=== PATIENT | female | born 1995 ===

== ENCOUNTER 2018-07-30 22:55 | Emergency (ER) | payer MEDICAID ==
[2018-07-30 22:55] VITALS: BMI 28.5
[2018-07-30 23:56] VITALS: PULSE 81
--- NOTE | 2018-07-31 02:37 | ED PDOC ---
HPI: General Adult Time Seen by Provider: 07/31/18 01:00 Chief Complaint (Nursing): Dizziness/Lightheaded Chief Complaint (Provider): Dizziness/Lightheaded History Per: Patient History/Exam Limitations: no limitations Onset/Duration Of Symptoms: Days (x1 week) Current Symptoms Are (Timing): Still Present Additional Complaint(s): 23 year old female with a history of ventricular septum deviation, tricuspid stenosis, COPD on oxygen at home and chronic cough presents to the ED for dizziness, headache, chest pain, leg swelling and cough onset one week. Patient has had 3 blood clots this year, one in her leg in December, one in her lung in January, and one in her leg again in May. Patient goes to [facility] and has been admitted there multiple times for blood clots and potential heart transplant. 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 Dr. De Oliveira on Thursday who advised her to go to [facility], but she was unable to due to lack of transportation. She has diarrhea but denies vomiting, abdominal pain or any other medical complaints. PMD: none Pulverizer Feeder: Dr. De Oliveira Past Medical History Reviewed: Historical Data, Nursing Documentation, Vital Signs Vital Signs: Last Vital Signs Temp 97.5 F L 07/31/18 06:28 Pulse 81 07/31/18 06:28 Resp 18 07/31/18 06:28 BP 118/78 07/31/18 06:28 Pulse Ox 95 07/31/18 06:28 - Medical History PMH: COPD, Pneumonia Other PMH: ventricular septum deviation, tricuspid stenosis - Surgical History Other surgeries: tracheostomy in the past - Family History Family History: States: Unknown Family Hx - Immunization History Hx Tetanus Toxoid Vaccination: No Hx Influenza Vaccination: No Hx Pneumococcal Vaccination: No - Home Medications Home Medications: Ambulatory Orders Medication Instructions Recorded Ofloxacin Ophth 0.3% [Ocuflox 5 ml OD Q4 #1 bottle 02/28/16 Ophth 0.3%] - Allergies Allergies/Adverse Reactions: Allergies Allergy/AdvReac Type Severity Reaction Status Date / Time peanut Allergy ANGIOEDEMA Verified 07/30/18 23:53 Review of Systems ROS Statement: Except As Marked, All Systems Reviewed And Found Negative Cardiovascular: Positive for: Chest Pain Respiratory: Positive for: Cough Gastrointestinal: Positive for: Diarrhea. Negative for: Vomiting, Abdominal Pain Neurological: Positive for: Headache (and lightheadedness) Physical Exam - Reviewed Nursing Documentation Reviewed: Yes Vital Signs Reviewed: Yes - Physical Exam Appears: Positive for: No Acute Distress (comfortable) Head Exam: Positive for: ATRAUMATIC, NORMOCEPHALIC Skin: Positive for: Normal Color, Warm, Dry Eye Exam: Positive for: Normal appearance, EOMI, PERRL Neck: Positive for: Normal Cardiovascular/Chest: Positive for: Regular Rate, Rhythm. Negative for: Murmur Respiratory: Positive for: Normal Breath Sounds. Negative for: Respiratory Distress Gastrointestinal/Abdominal: Positive for: Soft. Negative for: Tenderness Extremity: Positive for: Normal ROM, Swelling (LLE swollen in comparison with RLE) Neurologic/Psych: Positive for: Alert, Oriented (x3) - Laboratory Results Result Diagrams: 07/31/18 02:30 07/31/18 02:30 - ECG O2 Sat by Pulse Oximetry: 85 (RA) Pulse Ox Interpretation: Normal Medical Decision Making Medical Decision Making: Time: 013 Initial Impression: Headache and dizziness, chest pain and leg swelling Differential diagnoses include but are not limited to: PE, DVT, post-tussive headache, other possible diagnoses consider but not listed. Initial Plan: --CT angio --CT head --EKG --B-type natriuretic peptide --BMP --Troponin --U preg --U dip --CBC with differentials --PTT --Prothrombin time --Duplex lower left extrem Time: 234 Duplex lower left extrem: FINDINGS: Deep veins: Normal color and spectral Doppler flow. Normal compressibility. No deep vein thrombosis. Superficial veins: No thrombosis. Soft tissues: No popliteal cyst. IMPRESSION: No evidence of DVT within left lower extremity. Time: 034 CT head FINDINGS: Brain: No intracranial hemorrhage. No mass. No definite edema. Ventricles: No hydrocephalus. Bones/joints: No acute fracture. Soft tissues: Unremarkable. Sinuses: Opacification of RIGHT frontal sinus. Minimal mucosal thickening of ethmoid sinuses. Mastoid air cells: No significant effusion. Orbits: Unremarkable as visualized. IMPRESSION: 1. No definite acute intracranial abnormality. 2. Sinus disease. Time: 045 CT Angio FINDINGS: PULMONARY ARTERIES: Superior vena cava appears to connect with the right pulmonary artery, suggestive of systemic-pulmonary shunt, possibly a Emile shunt. The pulmonary arteries are small in size, and demonstrate diffusely heterogeneous enhancement bilaterally. This finding could be due to to mixing of unenhanced and enhanced blood, however, it is difficult to rule out bilateral pulmonary emboli. AORTA: Exam is nondiagnostic for the detection of aortic dissection because of suboptimal enhancement of the aorta. LUNGS: Incidental 3 mm noncalcified pulmonary nodule in the left lung, image 35/ series 5. In lowrisk patients (minimal or absent history of smoking or other known risk factors), no follow-up is necessary. For high-risk patients (history of smoking or other known risk factors), an optional chest CT at 12 months could be performed. No evidence of significant focal consolidation/infiltrate in the lungs. No evidence of diffuse pulmonary vascular congestion. PLEURAL SPACE: No pneumothorax or pleural effusions seen. 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 The right heart chambers are very small in size, which could be secondary to hypoplastic right heart syndrome. Left heart chambers appear grossly normal in size. No evidence of significant pericardial effusion. MEDIASTINUM: Esophagus is filled with fluid and air, and is mildly, diffusely dilated. Surgical material is seen throughout the mediastinum. BONES/JOINTS: Scoliotic curvature of the spine, secondary to a vertebral anomaly , specifically a hemivertebra, at the T3 level. 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 SOFT TISSUES: No acute abnormality of the visualized soft tissues seen. LYMPH NODES: No evidence of diffuse lymphadenopathy. LIVER: Metallic densities in the liver, uncertain etiology, but could represent embolization coils. IMPRESSION: - Nondiagnostic exam for pulmonary emboli. There is abnormal heterogeneous enhancement of the pulmonary arteries bilaterally. This is suspected to be due to mixing of unenhanced and enhanced blood, in this patient with evidence of a systemic-pulmonary shunt, possibly a Emile shunt. However, bilateral pulmonary emboli are difficult to exclude. 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 - Incidental 3 mm pumonary nodule. See recommendations above. - See above for remaining findings. Scribe Attestation: Documented by Yamini Santana, acting as a scribe for Jayce Drew MD Provider Scribe Attestation: All medical record entries made by the Scribe were at my direction and personally dictated by me. I have reviewed the chart and agree that the record accurately reflects my personal performance of the history, physical exam, medical decision making, and the department course for this patient. I have also personally directed, reviewed, and agree with the discharge instructions and disposition. Disposition - Clinical Impression Clinical Impression: Dizziness, Headache, Chest pain, Leg swelling, Hypokalemia, Pulmonary nodule - Patient ED Disposition Is Patient to be Admitted: No Doctor Will See Patient In The: Office Counseled Patient/Family Regarding: Studies Performed, Diagnosis, Need For Followup - Disposition Disposition: Routine/Home Disposition Time: 06:00 Condition: GOOD Additional Instructions: BRAYDON IBARRA, thank you for letting us take care of you today. Your provider was Jayce Drew MD and you were treated for DIZZINESS,HEADACHE. The emergency medical care you received today was directed at your acute symptoms. If you were prescribed any medication, please fill it and take as directed. It may take several days for your symptoms to resolve. Return to the Emergency Department if your symptoms worsen, do not improve, or if you have any other problems. Please contact your doctor or call one of the physicians/clinics you have been referred to that are listed on the Patient Visit Information form that is included in your discharge packet. Bring any paperwork you were given at discharge with you along with any medications you are taking to your follow up visit. Our treatment cannot replace ongoing medical care by a primary care provider outside of the emergency department. Thank you for allowing the [facility] team to be part of your care today. If you had an X-Ray or CT scan: A Radiologist will review the ED reading if any change in treatment is needed we will contact you. If you had a blood, urine, or wound culture: It will take several days for the results, if any change in treatment is needed we will contact you. If you had an STI test: It will take 48 hours for the results. Please call after 1 week if you have not heard back. Instructions: Chest Pain, Hypokalemia (DC), Headache, Adult (DC), Pulmonary Nodule
[2018-07-31 02:59] LABS: BASO # 0.1 K/uL (0.0-0.2); BASO % 0.9 % (0.0-2.0); EOS # 0.1 K/uL (0.0-0.7); EOS % 1.4 % (0.0-4.0); HEMOGLOBIN 12.6 g/dL (12.0-16.0); INR 2.5; LYMPH # 2.3 K/uL (1.0-4.3); MEAN CELL VOLUME 73.1 fl (81.0-99.0); MEAN CORPUSCULAR HEMOGLOBIN 23.8 pg (27.0-31.0); MEAN CORPUSCULAR HGB CONC 32.5 g/dL (33.0-37.0); MEAN PLATELET VOLUME 8.2 fl (7.2-11.7); MONO # 0.7 K/uL (0.0-0.8); MONO % 10.5 % (0.0-10.0); NEUT # 3.5 K/uL (1.8-7.0); NEUT % 53.2 % (50.0-75.0); NRBC % 0.1 % (0.0-0.0); PROTHROMBIN TIME 27.8 Seconds (9.8-13.1); RBC 5.3 Mil/uL (3.80-5.20); RED CELL DISTRIBUTION WIDTH 18.1 % (11.5-14.5); WHITE BLOOD COUNT 6.7 K/uL (4.8-10.8)
[2018-07-31 03:02] LABS: PARTIAL THROMBOPLASTIN TIME 50.2 Seconds (25.6-37.1)
[2018-07-31 03:03] LABS: BLOOD UREA NITROGEN 15 mg/dl (7-17); CALCIUM 9.4 mg/dL (8.4-10.2); GFR NON-AFRICAN AMERICAN > 60
[2018-07-31] MEDS ORDERED: Sodium Chloride 0.9% 50 ML IV ONE (03:10)
[2018-07-31] MEDS ORDERED: Iodixanol 320 MG/ML 100 ML BOTTLE IV ONE (03:10)
[2018-07-31 03:15] LABS: B-TYPE NATRIURETIC PEPTIDE 109 pg/ml (0-450)
[2018-07-31] MEDS ORDERED: Potassium Chloride 20 mEq ER Tab PO ONE (03:27)
[2018-07-31] MEDS ORDERED: Potassium CL 10 MEQ/50 ML 50 ML IVPB ONE (03:27)
[2018-07-31 06:36] VITALS: BP 118/78; RESP 18; TEMP 97.5
--- NOTE | 2018-07-31 09:08 | CT ---
Date of service: 07/31/2018 PROCEDURE: CT HEAD WITHOUT CONTRAST. HISTORY: headache dizziness COMPARISON: None available. TECHNIQUE: Axial computed tomography images were obtained through the head/brain without intravenous contrast. Radiation dose: Total exam DLP = 6 4 mGy-cm. This CT exam was performed using one or more of the following dose reduction techniques: Automated exposure control, adjustment of the mA and/or kV according to patient size, and/or use of iterative reconstruction technique. FINDINGS: HEMORRHAGE: No intracranial hemorrhage. BRAIN: No mass effect or edema. No atrophy or chronic microvascular ischemic changes. VENTRICLES: Unremarkable. No hydrocephalus. CALVARIUM: Unremarkable. PARANASAL SINUSES: Unremarkable as visualized. No significant inflammatory changes. MASTOID AIR CELLS: Unremarkable as visualized. No inflammatory changes. OTHER FINDINGS: None. IMPRESSION: Normal CT of the Head.
--- NOTE | 2018-07-31 09:44 | CT ---
Date of service: 07/31/2018 PROCEDURE: CT Chest with contrast (Pulmonary Angiogram) HISTORY: chest pain COMPARISON: None available. TECHNIQUE: Axial computed tomography images were obtained of the chest in the pulmonary arterial phase of enhancement. Coronal and sagittal reformatted images were created and reviewed. Intravenous contrast dose: Radiation dose: Total exam DLP = mGy-cm. This CT exam was performed using one or more of the following dose reduction techniques: Automated exposure control, adjustment of the mA and/or kV according to patient size, and/or use of iterative reconstruction technique. FINDINGS: PULMONARY ARTERIES: Nondiagnostic exam for exclusion of pulmonary emboli. Abnormal heterogeneous enhancement of the pulmonary arteries bilaterally likely secondary to mixing of unenhanced and enhanced blood in this patient with evidence of a systemic pulmonary shunt, possibly a bland shunt. Bilateral pulmonary emboli are difficult to exclude. AORTA: No acute findings. No thoracic aortic aneurysm. LUNGS: 3 millimeter nonspecific pulmonary nodule in the left upper lobe. PLEURAL SPACES: Unremarkable. No effusion or pneumothorax. HEART: Complex congenital cardiac anomaly. LYMPH NODES: No lymphadenopathy. BONES, CHEST WALL: Unremarkable. No fracture or destructive lesion OTHER FINDINGS: Unremarkable. IMPRESSION: See above.
--- NOTE | 2018-07-31 10:48 | CARD ---
APPROVED REPORT Date of service: 07/31/2018 <Conclusion> Normal sinus rhythm Possible Left atrial enlargement Left ventricular hypertrophy and repolarization changes Abnormal ECG
[2018-07-31 23:04] VITALS: O2SAT 85
--- NOTE | 2018-08-02 10:36 | US ---
Date of service: 07/31/2018 PROCEDURE: Left Lower Extremity Venous Duplex Exam. HISTORY: leg swelling left PRIORS: None. TECHNIQUE: Left common femoral, femoral, popliteal and posterior tibial, peroneal and great saphenous veins were evaluated. Flow was assessed with color Doppler, compressibility, assessment of phasic flow and augmentation response. Report prepared by electroencephalograph technologist. FINDINGS: LEFT: 1. Common Femoral Vein: 1.1. Compressibility - Fully compressible: Thrombus - None : Flow - Phasic: Augmentation -Normal: Reflux - None. 2. Femoral Vein: 2.1. Compressibility - Fully compressible: Thrombus - None: Flow - Phasic: Augmentation -Normal: Reflux - None. 3. Popliteal Vein: 3.1. Compressibility - Fully compressible: Thrombus - None: Flow - Phasic: Augmentation -Normal: Reflux - None. 4. Posterior Tibial Vein: 4.1. Compressibility - Fully compressible: Thrombus - None: Flow - Phasic: Augmentation -Normal: Reflux - None. 5. Peroneal Vein: 5.1. Compressibility - Fully compressible: Thrombus - None: Flow - Phasic: Augmentation -Normal: Reflux - None. 6. Great Saphenous Vein: 6.1. Compressibility - Fully compressible: Thrombus - None: Flow - Phasic: Augmentation - Normal: Reflux - None. OTHER FINDINGS: IMPRESSION: No evidence of deep or superficial vein thrombosis of the left lower extremity with excellent venous flow. Normal valve function noted of the left side. Normal venous flow noted in the right common femoral vein.
== END 2018-07-31 06:37 | disposition home or self-care (01) ==
LOC: H.ER 22:55
DX: R42 Dizziness and giddiness (principal); R51 Headache; R07.89 Other chest pain; R60.0 Localized edema; E87.6 Hypokalemia; I26.99 Other pulmonary embolism without acute cor pulmonale; Z99.81 Dependence on supplemental oxygen
CPT/HCPCS: 70450; 71275; 80048; 83880; 84484; 85025; 85610; 85730; 93005; 93971; 96365; 99283; J3480; Q9967

== ENCOUNTER 2018-08-02 17:24 | Emergency (ER) | payer MEDICAID ==
[2018-08-02 17:24] VITALS: BMI 28.5
[2018-08-02 18:51] LABS: VENOUS BLOOD GAS BASE EXCESS 7.5 mmol/L (0.0-2.0); VENOUS BLOOD GAS PCO2 50 mmHg (40-60); VENOUS BLOOD GAS PO2 28 mm/Hg (30-55); VENOUS BLOOD PH 7.43 (7.32-7.43)
[2018-08-02 19:04] LABS: BASO # 0.1 K/uL (0.0-0.2); BASO % 0.8 % (0.0-2.0); EOS # 0.1 K/uL (0.0-0.7); EOS % 1.2 % (0.0-4.0); HEMOGLOBIN 11.9 g/dL (12.0-16.0); LYMPH # 1.9 K/uL (1.0-4.3); LYMPH % 29.3 % (20.0-40.0); MEAN CELL VOLUME 73.3 fl (81.0-99.0); MEAN CORPUSCULAR HEMOGLOBIN 23.8 pg (27.0-31.0); MEAN CORPUSCULAR HGB CONC 32.4 g/dL (33.0-37.0); MEAN PLATELET VOLUME 8.7 fl (7.2-11.7); MONO # 0.7 K/uL (0.0-0.8); MONO % 10.4 % (0.0-10.0); NEUT # 3.8 K/uL (1.8-7.0); NEUT % 58.3 % (50.0-75.0); RBC 4.99 Mil/uL (3.80-5.20); RED CELL DISTRIBUTION WIDTH 18.3 % (11.5-14.5); WHITE BLOOD COUNT 6.6 K/uL (4.8-10.8)
[2018-08-02 19:22] LABS: INR 1.5; PROTHROMBIN TIME 16.9 Seconds (9.8-13.1)
--- NOTE | 2018-08-02 19:23 | ED PDOC ---
HPI: Chest Pain Time Seen by Provider: 08/02/18 18:08 Chief Complaint (Nursing): Chest Pain Chief Complaint (Provider): Chest Pain History Per: Patient History/Exam Limitations: no limitations Onset/Duration Of Symptoms: Days Current Symptoms Are (Timing): Still Present Additional Complaint(s): 23 y/o female with a PMHx of extensive cardiac surgery due to ventricular septle defect at . Patient was last hospitalized one month at [facility]. Patient is unsure what the diagnosis was but initially went for shortness of breath and chest pain. Patient states that she started having chest pain that has worsened thus prompting today's visit. Patient recently moved from [place] to [place], therefore she does not have a PMD. Patient additionally reports of having a mild headache with these symptoms. Patient is on home oxygen at 4 liters. Of note, patient has all medications with refills and is complaint with medications and has previously been complaint with cardiology follow up. Patient additionally had a DVT in May 2018 and a PE in January 2018. PMD: None Allergies: Peanuts Medications: Sildenafil, Eliquis, Torsemide, Trazodone and Benzoatate Past Medical History Reviewed: Historical Data, Nursing Documentation, Vital Signs Vital Signs: Last Vital Signs Temp 98.4 F 08/02/18 20:05 Pulse 81 08/02/18 20:05 Resp 20 08/02/18 20:05 BP 115/51 L 08/02/18 20:05 Pulse Ox 100 08/02/18 20:46 - Medical History PMH: COPD, Pneumonia Other PMH: Ventricular septal defect at - Surgical History Other surgeries: Extensive cardiac surgery - Family History Family History: States: Unknown Family Hx - Immunization History Hx Tetanus Toxoid Vaccination: No Hx Influenza Vaccination: No Hx Pneumococcal Vaccination: No - Home Medications Home Medications: Ambulatory Orders Medication Instructions Recorded Ofloxacin Ophth 0.3% [Ocuflox 5 ml OD Q4 #1 bottle 02/28/16 Ophth 0.3%] Potassium Chloride [K-Dur 20] 20 meq PO DAILY #4 tab 08/02/18 - Allergies Allergies/Adverse Reactions: Allergies Allergy/AdvReac Type Severity Reaction Status Date / Time peanut Allergy ANGIOEDEMA Verified 07/30/18 23:53 Review of Systems ROS Statement: Except As Marked, All Systems Reviewed And Found Negative Cardiovascular: Positive for: Chest Pain Respiratory: Positive for: Shortness of Breath Neurological: Positive for: Headache Physical Exam - Reviewed Nursing Documentation Reviewed: Yes Vital Signs Reviewed: Yes - Physical Exam Appears: Positive for: No Acute Distress (Patient speaking in a whisper with a hoarse voice due to tracheostomy as a child. Patient reports that is her baseline. Patient is comfortabl on oxygen) Respiratory: Positive for: Normal Breath Sounds, Other (S1 and S2 difficult to asculate murmur due to loud sounds in the ED. ) Gastrointestinal/Abdominal: Positive for: Normal Exam, Soft. Negative for: Tenderness Extremity: Positive for: Normal ROM. Negative for: Deformity, Swelling, Other ( cyanosis, clubbing and pain on calf squeeze. ) - Laboratory Results Result Diagrams: 08/02/18 18:55 08/02/18 18:55 - ECG ECG Rhythm: Positive for: Sinus Rhythm Interpretation Of Abn EKG: Left Ventricular Hypertrophy Rate: 92 O2 Sat by Pulse Oximetry: 100 (RA) Pulse Ox Interpretation: Normal Medical Decision Making Medical Decision Making: Time: 1910 A/P: Workup for acute cardiac injury vs infectious process based on recent hospitalization. Plan: -- Labs sent. -- CXR and medication pending results. -- Patient is stable with normal vitals at this time. -- Patient endorsed to Dr. Madsen, pending results. -- Type and Screen -- VBG -- CT Angio Chest PE Protocol -- EKG -- BNP -- BMP -- Troponin I -- CBC with differentials -- PTT -- Prothrombin Time -- CXR Portable Scribe Attestation: Documented by Alfredo Wilburn acting as a scribe for Letty Mendenhall MD. Provider Scribe Attestation: All medical record entries made by the Scribe were at my direction and personally dictated by me. I have reviewed the chart and agree that the record accurately reflects my personal performance of the history, physical exam, medical decision making, and the department course for this patient. I have also personally directed, reviewed, and agree with the discharge instructions and disposition. Disposition - Clinical Impression Clinical Impression: Atypical chest pain, Hypokalemia - Disposition Referrals: Q[facility] Wong [Outside] Condition: IMPROVED Prescriptions: Potassium Chloride [K-Dur 20] 20 meq PO DAILY #4 tab Instructions: Chest Pain That Is Not Caused by the Heart (DC), Hypokalemia (DC) Forms: [facility] Irvin (Moroccan)
[2018-08-02 19:25] LABS: PARTIAL THROMBOPLASTIN TIME 41.8 Seconds (25.6-37.1)
[2018-08-02 19:32] LABS: BLOOD UREA NITROGEN 14 mg/dl (7-17); CALCIUM 8.6 mg/dL (8.4-10.2); GFR NON-AFRICAN AMERICAN > 60
[2018-08-02 19:46] LABS: B-TYPE NATRIURETIC PEPTIDE 133 pg/ml (0-450)
--- NOTE | 2018-08-02 19:49 | ED PDOC ---
- Laboratory Results Result Diagrams: 08/02/18 18:55 08/02/18 18:55 - ECG O2 Sat by Pulse Oximetry: 100 (RA) Pulse Ox Interpretation: Normal Medical Decision Making Medical Decision Making: Time: 1899 -- Patient endorsed to me by Dr. Mendenhall, pending results, reassessment and final ER disposition. [id number] --hall porter Carolina brought to my attention that patient very recently had a CTA and because of venous mixing, the test was nondiagnostic. --I re-evaluated the patient at the bedside and she states she's feeling much better --Likelihood of PE at this time is extremely low --Advised patient of hypokalemia, will recommend short course of potassium supplements --Patient feels comfortable following as outpatient, advised patient of [facility] services to coordinate care for her --Patient with normal vitals, very well appearing upon discharge Scribe Attestation: Documented by Alfredo Wilburn acting as a scribe for Beto Madsen MD. Provider Scribe Attestation: All medical record entries made by the Scribe were at my direction and personally dictated by me. I have reviewed the chart and agree that the record accurately reflects my personal performance of the history, physical exam, medical decision making, and the department course for this patient. I have also personally directed, reviewed, and agree with the discharge instructions and disposition. Disposition - Clinical Impression Clinical Impression: Atypical chest pain, Hypokalemia - POA Present On Arrival: None - Disposition Referrals: [facility] [Outside] Disposition: Routine/Home Disposition Time: 20:45 Condition: IMPROVED Prescriptions: Potassium Chloride [K-Dur 20] 20 meq PO DAILY #4 tab Instructions: Chest Pain That Is Not Caused by the Heart (DC), Hypokalemia (DC) Forms: [facility] (Mexican)
[2018-08-02] MEDS ORDERED: Iodixanol 320 MG/ML 100 ML BOTTLE IV ONE (19:54)
[2018-08-02] MEDS ORDERED: Sodium Chloride 0.9% 0 ML IV ONE (19:54)
[2018-08-02] MEDS ORDERED: Potassium CL 10 MEQ/50 ML 50 ML IVPB ONE (20:56)
[2018-08-02] MEDS ORDERED: Potassium CL 10 MEQ/50 ML 50 ML ONE (21:01)
[2018-08-02 23:52] VITALS: BP 106/59; PULSE 66; RESP 24; TEMP 98.7; O2SAT 94
--- NOTE | 2018-08-03 12:35 | RAD ---
Date of service: 08/02/2018 HISTORY: possible admission COMPARISON: No prior. FINDINGS: LUNGS: The lungs are well inflated and clear. PLEURA: No significant pleural effusion identified, no pneumothorax apparent. CARDIOVASCULAR: Normal. OSSEOUS STRUCTURES: There is short segment levoscoliosis in the upper thoracic spine. VISUALIZED UPPER ABDOMEN: Normal. OTHER FINDINGS: None. IMPRESSION: No active pulmonary disease.
--- NOTE | 2018-08-03 12:35 | CARD ---
APPROVED REPORT Date of service: 08/02/2018 EKG Measurement Heart [id number] 160P10 [id number] <Conclusion> Normal sinus rhythm Left ventricular hypertrophy with repolarization abnormality Abnormal ECG
== END 2018-08-02 23:54 | disposition home or self-care (01) ==
LOC: H.ER 17:24
DX: R07.9 Chest pain, unspecified (principal); E87.6 Hypokalemia; J44.9 Chronic obstructive pulmonary disease, unspecified; Z86.711 Personal history of pulmonary embolism; Z86.718 Personal history of other venous thrombosis and embolism; Z99.81 Dependence on supplemental oxygen; Z79.899 Other long term (current) drug therapy; Z79.01 Long term (current) use of anticoagulants
CPT/HCPCS: 71045; 80048; 82803; 83880; 84484; 85025; 85610; 85730; 86850; 86900; 93005; 99285; J3480

== ENCOUNTER 2018-09-01 21:34 | Emergency (ER) | payer MEDICAID ==
[2018-09-01 21:34] VITALS: BMI 28.5
[2018-09-01 21:40] VITALS: O2SAT 95
--- NOTE | 2018-09-01 22:07 | ED PDOC ---
HPI: Abdomen Time Seen by Provider: 09/01/18 21:52 Chief Complaint (Nursing): GI Problem Chief Complaint (Provider): abdominal pain History Per: Patient History/Exam Limitations: no limitations Onset/Duration Of Symptoms: Days (1) Location Of Pain/Discomfort: LLQ Associated Symptoms: Vomiting Additional Complaint(s): 23 y/o female history of congenital heart disease, pulmonary hypertension, presents complaining of left lower abdominal pain x 1 day. Associated one episode of vomiting prior to arrival. Denies fever, chest pain, shortness of breath, palpitations, urinary symptoms, changes in bowel movements, vaginal bleeding/discharge. 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 Past Medical History Reviewed: Historical Data, Nursing Documentation, Vital Signs Vital Signs: Last Vital Signs Temp 98.7 F 09/01/18 21:36 Pulse 87 09/01/18 21:36 Resp 16 09/01/18 21:36 BP 136/54 L 09/01/18 21:36 Pulse Ox 95 09/01/18 21:36 - Medical History PMH: COPD, Pneumonia, Pulmonary Embolism Other PMH: congenital heart disease, pulmonary hypertension - Surgical History Other surgeries: open heart surgery - Family History Family History: States: Unknown Family Hx - Immunization History Hx Tetanus Toxoid Vaccination: No Hx Influenza Vaccination: No Hx Pneumococcal Vaccination: No - Home Medications Home Medications: Ambulatory Orders Medication Instructions Recorded Ofloxacin Ophth 0.3% [Ocuflox 5 ml OD Q4 #1 bottle 02/28/16 Ophth 0.3%] Potassium Chloride [K-Dur 20] 20 meq PO DAILY #4 tab 08/02/18 Apixaban [Eliquis] 5 mg PO BID #60 tablet 09/02/18 Sildenafil [Revatio] 20 mg PO TID #90 tab 09/02/18 - Allergies Allergies/Adverse Reactions: Allergies Allergy/AdvReac Type Severity Reaction Status Date / Time peanut Allergy ANGIOEDEMA Verified 09/01/18 21:36 Review of Systems ROS Statement: Except As Marked, All Systems Reviewed And Found Negative Gastrointestinal: Positive for: Nausea, Vomiting, Abdominal Pain Physical Exam - Reviewed Nursing Documentation Reviewed: Yes Vital Signs Reviewed: Yes - Physical Exam Appears: Positive for: Well, Non-toxic, No Acute Distress Head Exam: Positive for: ATRAUMATIC, NORMAL INSPECTION, NORMOCEPHALIC Skin: Positive for: Normal Color Eye Exam: Positive for: Normal appearance ENT: Positive for: Normal ENT Inspection Cardiovascular/Chest: Positive for: Regular Rate, Rhythm Respiratory: Positive for: Normal Breath Sounds Gastrointestinal/Abdominal: Positive for: Bowel Sounds, Soft, Tenderness (llq) Back: Positive for: Normal Inspection Extremity: Positive for: Normal ROM Neurologic/Psych: Positive for: Alert, Oriented (x3) - Laboratory Results Result Diagrams: 09/01/18 22:10 09/01/18 22:10 - ECG O2 Sat by Pulse Oximetry: 95 - Progress ED Course And Treament: labs, urine, TV u/s, Tylenol PO USArad u/s impression: multiple large vessels in the pelvis area, please almas elate clinically to exclude pelvic congestion syndrome. Consider follow-up with MRI On re-eval, patient states she is feeling better. Tolerating PO. Patient educated on findings, discharged with instructions to follow up PMD/Hydro Station Operator. Advised Tylenol PRN pain. One month supply for Eliquis and Sildenafil given to patient with instructions to follow up with Pricing Strategist within 2-3 days Patient demonstrates full understanding of discharge instructions Patient requires no further intervention in the ED and is stable for discharge at this itme Disposition - Clinical Impression Clinical Impression: Abdominal pain, Medication refill - Patient ED Disposition Is Patient to be Admitted: No Counseled Patient/Family Regarding: Studies Performed, Diagnosis, Need For Followup, Rx Given - Disposition Referrals: [facility] [Outside] [facility] [Outside] Disposition: Routine/Home Disposition Time: 01:47 Condition: IMPROVED Prescriptions: Apixaban [Eliquis] 5 mg PO BID #60 tablet Sildenafil [Revatio] 20 mg PO TID #90 tab Instructions: Acute Abdomen (Belly Pain), Adult (DC) Forms: [employer] (Spanish)
[2018-09-01 22:20] LABS: BASO % 0.8 % (0.0-2.0); EOS # 0.1 K/uL (0.0-0.7); EOS % 2.2 % (0.0-4.0); LYMPH # 1.5 K/uL (1.0-4.3); LYMPH % 30.7 % (20.0-40.0); MEAN CORPUSCULAR HEMOGLOBIN 22.4 pg (27.0-31.0); MEAN CORPUSCULAR HGB CONC 31.2 g/dL (33.0-37.0); MEAN PLATELET VOLUME 7.9 fl (7.2-11.7); MONO # 0.5 K/uL (0.0-0.8); MONO % 10.1 % (0.0-10.0); NEUT # 2.8 K/uL (1.8-7.0); NEUT % 56.2 % (50.0-75.0); RBC 4.9 Mil/uL (3.80-5.20); RED CELL DISTRIBUTION WIDTH 18.4 % (11.5-14.5)
[2018-09-01 22:32] LABS: ALBUMIN 3.9 g/dL (3.5-5.0); ALT/SGPT 33 U/L (9-52); AST/SGOT 38 U/L (14-36); BLOOD UREA NITROGEN 11 mg/dl (7-17); CALCIUM 9.2 mg/dL (8.4-10.2); GFR NON-AFRICAN AMERICAN > 60
[2018-09-02 01:37] LABS: SQUAMOUS EPITHIAL 6 /hpf (0-5); URINE AMORPHOUS SEDIMENT RARE /ul (<OCC); URINE BILIRUBIN NEGATIVE (NEGATIVE); URINE BLOOD LARGE (NEGATIVE); URINE CLARITY SLIGHTY-CLOUDY (Clear); URINE COLOR YELLOW (YELLOW); URINE GLUCOSE (UA) NEG (Normal); URINE LEUKOCYTE ESTERASE NEG Leu/uL (Negative); URINE PROTEIN NEGATIVE (NEGATIVE); URINE UROBILINOGEN 0.2-1.0 mg/dL (0.2-1.0)
[2018-09-02 01:59] VITALS: BP 118/63; PULSE 66; RESP 18; TEMP 98
--- NOTE | 2018-09-02 10:45 | US ---
Date of service: 09/01/2018 HISTORY: Left lower quadrant pain, vomiting. LMP 08/29/2018 COMPARISON: None available. TECHNIQUE: Transabdominal only. Real-time technique with 2D, duplex and color Doppler FINDINGS: UTERUS: Measures 3.2 x 4.5 x 8.5 cm. Normal in size and appearance. No fibroid or other mass lesion seen. ENDOMETRIUM: Measures 6.0 mm in diameter. No ultrasound findings to suggest gestational sac, fluid, debris, mass or polyp or other pathologic process within the endometrium. CERVIX: No cervical abnormality identified. RIGHT OVARY: Measures 1.6 x 1.8 x 2.7 cm. No solid mass. Normal flow. LEFT OVARY: Measures 0.5 x 1.4 x 1.8 cm. No solid mass. Normal flow. FREE FLUID: No significant free fluid noted. OTHER FINDINGS: Prominent vessels on the left. This is a nonspecific finding and may represent a variant of pelvic congestion syndrome. IMPRESSION: Unremarkable uterus, endometrium, adnexa. No evidence of torsion or other acute pathologic process. Additional benign and/or incidental findings described above. Concordant findings (preliminary report) provided by [facility].
== END 2018-09-02 02:02 | disposition home or self-care (01) ==
LOC: H.ER 21:34
DX: Z76.0 Encounter for issue of repeat prescription (principal); R10.32 Left lower quadrant pain; R11.10 Vomiting, unspecified; Z79.01 Long term (current) use of anticoagulants